=== PATIENT | male | born 1965 | race Caucasian/White ===

== ENCOUNTER 2019-03-04 14:09 | Outpatient (CLI) | payer MEDICARE | END 2019-03-04 14:10 | disposition EMS.NT | LOC: EMS 14:09 | PROVIDERS: ATTEND Surgery | DX: R11.0 Nausea (principal); R68.83 Chills (without fever); R19.7 Diarrhea, unspecified ==

== ENCOUNTER 2023-10-04 17:22 | Outpatient (CLI) | payer OTHER | END 2023-10-04 23:59 | disposition critical access hospital (66) | LOC: EMS 17:22 | DX: Z04.1 Encounter for examination and observation following transport accident (principal); S50.311A Abrasion of right elbow, initial encounter; S80.212A Abrasion, left knee, initial encounter; V23.49XA Other motorcycle driver injured in collision with car, pick-up truck or van in traffic accident, initial encounter; Y92.413 State road as the place of occurrence of the external cause; M25.562 Pain in left knee; M25.521 Pain in right elbow; M79.675 Pain in left toe(s); R07.81 Pleurodynia | CPT/HCPCS: A0425; A0429 ==

== ENCOUNTER 2023-10-04 17:48 | Emergency (ER) | payer OTHER ==
[2023-10-04] MEDS: ACETAMINOPHEN/CODEINE 300 MG/30 MG TABLET PO STA (18:52)
[2023-10-04] MEDS: TETANUS/DIPHTHERIA/PERTUSSIS 0.5 ML SYRINGE IM ONE (18:53)
[2023-10-04] MEDS: BACITRACIN ZINC OINT 1 PACKET TOP STA (18:54)
[2023-10-04] MEDS: LIDOCAINE-EPINEPH-TETRACAINE 3 ML SYRINGE TOP STA (18:55)
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
[2023-10-04 20:05] VITALS: BP 132/67; O2SAT 99
== END 2023-10-04 20:09 | disposition home or self-care (01) ==
LOC: EDUNIT# → ED 17:48
DX: S80.212A Abrasion, left knee, initial encounter (principal); S30.811A Abrasion of abdominal wall, initial encounter; S80.02XA Contusion of left knee, initial encounter; V23.49XA Other motorcycle driver injured in collision with car, pick-up truck or van in traffic accident, initial encounter; Y92.410 Unspecified street and highway as the place of occurrence of the external cause; F17.200 Nicotine dependence, unspecified, uncomplicated; Z23 Encounter for immunization
CPT/HCPCS: 90471; 99283